=== PATIENT | female | born 1945 | race Caucasian/White ===

== ENCOUNTER 2018-01-17 06:21 | Inpatient (IN) | payer BC, MEDICARE ==
[~2018-01-17 06:21] MED LIST: ROPIVACAINE HCL/PF 100 MG, EPINEPHrine 0.2 MG, KETOROLAC TROMETHAMINE 30 MG in NORMAL S... IJ PRN; TRANEXAMIC ACID 1,000 MG in NORMAL SALINE 100 ML IV PRN; ceFAZolin SODIUM 1 GM VIAL IV PRN
[2018-01-17] MEDS: RINGER'S SOLUTION,LACTATED 1,000 ML IV PRN ×2 (07:10→09:15)
--- NOTE | 2018-01-17 07:22 | ANES ---
Anesthesia Pre Procedure Eval Vitals/Labs: Last Vital Signs Temp 36.9 C 01/17/18 06:38 Pulse 62 01/17/18 06:38 Resp 17 01/17/18 06:38 BP 162/92 H 01/17/18 06:38 Pulse Ox 95 01/17/18 06:38 HOME MEDICATIONS Sotalol HCl [Sotalol] 80 mg PO BID 11/14/13 [Last Taken 01/17/18] Nitroglycerin 0.4 mg SL Q5M 07/23/15 [Last Taken Unknown] Spironolactone [Aldactone] 12.5 mg PO DAILY 06/19/16 [Last Taken 01/16/18] cholecalciferol (vitamin D3) 2,000 unit capsule 2,000 unit PO DAILY 12/25/17 [ Last Taken 01/17/18] isosorbide mononitrate ER 60 mg tablet,extended release 24 hr 60 mg PO QAM 12/25 [Last Taken 01/17/18] lisinopril 30 mg tablet 30 mg PO BID tab 12/25/17 [Last Taken 01/17/18] metoprolol tartrate 25 mg tablet 25 mg PO BID tab 12/25/17 [Last Taken 01/17/18 ] vitamins A,C,S-zgim-auadxr 7,160 unit-113 mg-100 unit tablet 1 tab PO ONCE tab 12/25/17 [Last Taken 01/17/18] warfarin 3 mg tablet 3 mg PO DAILY tab 12/25/17 [Last Taken 01/12/18] pravastatin 40 mg tablet 40 mg PO DAILY #90 tab 12/26/17 [Last Taken 01/17/18] Furosemide [Lasix] 20 mg PO BID 01/17/18 [Last Taken 01/16/18] Allergies/Adverse Reactions: Allergies Allergy/AdvReac Type Severity Reaction Status Date / Time tramadol Allergy Mild Nausea Verified 01/17/18 06:52 morphine AdvReac Intermediate "MADE ME Verified 01/17/18 06:52 DEATHLY SICK" oxycodone HCl [From Percocet] AdvReac Mild NAUSEA, Verified 12/28/17 14:53 UPSET STOMACH - Planned Procedure Planned Procedure: Left Total Knee Arthroplasty Medication List Reviewed:: Yes Allergies Verified: Yes Medical History (Last Updated 01/17/18 @ 06:55 by Jessi Zimmerman RN) No history of alcohol use Non-tobacco user Wears dentures Wears glasses Atrial fibrillation Onset Date: 2009 DJD (degenerative joint disease) Onset Date: 2012 Hyperlipidemia Onset Date: 2009 Hypertension Onset Date: 2007 Impaired fasting blood sugar Onset Date: 2014 Macular degeneration Onset Date: Unknown Obesity Onset Date: Unknown Surgical History (Last Updated 01/17/18 @ 06:55 by Jessi Zimmerman RN) History of adenoidectomy H/O cardiac catheterization Onset Date: 11/03/09 History of appendectomy Onset Date: 1985 History of cardioversion Onset Date: 2009 History of cholecystectomy Onset Date: 1985 History of colonoscopy Onset Date: 10/04/11 History of tonsillectomy Onset Date: 1957 History of total knee arthroplasty Onset Date: 10/02/12 History of total vaginal hysterectomy (TVH) Onset Date: 1987 Family History (Last Updated 01/17/18 @ 06:56 by Jessi Zimmerman RN) Mother Heart disease Father Myocardial infarction Brother Cancer, Onset Age: 71 Hypertension Son Diabetes Cancer Son Hypertension - Family Anesthesia History Family History:: no untoward family reactions to anesthesia, no familial bleeding tendencies, no family history of clotting disorders, no family history of premature - Airway/Neck/Teeth Within Normal Limits:: Yes Denture Type: Full- Upper Mallampatti Score: 2 Thyromental (T-M) distance: > 6 cm Mandibulo Hyoid distance: > 3 cm - Respiratory Respiratory: lungs clear Smoking Status: Never smoker Discussed smoking cessation including day of surgery: No Sleep Apnea currently treated: No Sleep Apnea by current assessment: No Discussed Risks/Treatment of LA NENA: No - Cardiovascular Tolerates Activity: Fair Heart Sounds: S1 & S2, Regular - Anesthesia Assessment and Plan ASA Class: PS, III Anesthesia Type Plan: Block - Left ultrasound guided adductor canal nerve block for postop analgesia, Spinal
[2018-01-17 07:59] LABS: Prothrombin Time (Patient) 10.9 Seconds (9.0-11.0)
[2018-01-17 08:00] LABS: INR 1.09 INR (0.90-1.10)
[2018-01-17] MEDS ORDERED: HYDROmorphone HCL 1 MG/ML DISP.SYRIN IV PRN (10:10)
[2018-01-17] MEDS ORDERED: MAGNESIUM HYDROXIDE 30 ML UDC PO PRN (10:10)
[2018-01-17] MEDS ORDERED: ACETAMINOPHEN 500 MG TABLET PO PRN (10:10)
[2018-01-17] MEDS ORDERED: diphenhydrAMINE HCL 50 MG/ML VIAL IV PRN (10:10)
[2018-01-17] MEDS ORDERED: ZOLPIDEM TARTRATE 5 MG TABLET PO PRN (10:10)
[2018-01-17] MEDS ORDERED: ONDANSETRON HCL/PF 2 MG/ML VIAL IV PRN (10:10)
[2018-01-17] MEDS ORDERED: MAG HYDROX/ALUMINUM HYD/SIMETH 30 ML UDC PO PRN (10:10)
--- NOTE | 2018-01-17 10:10 | OR ---
Operative Report - Dictated Report Narrative: Date: 01/17/2018 Preoperative diagnosis: Left Knee degenerative joint disease. Postoperative diagnosis: Left Knee degenerative joint disease. Procedure: Left Total knee arthroplasty. Surgeon: Ham Adams M.D. Manufacturing Assembler: Luis Muller PA-C Anesthesia: Spinal with regional block and local periarticular joint injection. Complications: None Specimens: Bone for disposal. Estimated blood loss: Minimal. Tourniquet time: 90 Minutes at 350 millimeters of mercury. Retained implants: Depuy Attune size 6 narrow left lugged cemented posterior stabilized femoral component. Size 5 fixed-bearing cemented tibial platform. 6 by 8 millimeter posterior stabilized cross-linked tibial insert. 41 millimeter medialized patella button. Indications: Mrs. Orozco is a 72 year-old female who has had long-standing left knee pain and arthrosis. This patient was followed in my clinic for period of time with significant complaints of left knee pain consistent with arthritic changes. She had failed conservative measures including, but not limited to, activity modification, passage of time, medications, and other conservative measures. Patient wished to proceed with surgical treatment. The risks, benefits, and alternatives were discussed in clinic. The risks of , blood clots, bleeding, infection, nerve/tendon blood vessel/ injury, malposition of components, intraoperative fracture, postoperative limited range of motion, persistent pain, failure of components, and need for additional procedures. Patient wished to proceed consent was obtained after answering all questions. Procedure: After marking the correct extremity on the floor, the patient was taken to the operating room. A timeout was performed. IV antibiotics consisting of Ancef were administered prior to the procedure. A regional followed by spinal anesthetic was induced by anesthesia, per my request, on the operative table with all bony prominences well-padded. Pardo catheter was placed, and a bump was placed under the operative side buttock. SCDs and JACKLYN hose were utilized on the nonoperative leg. A well-padded tourniquet was applied to the operative thigh. The operative leg was then pre-scrubbed with alcohol prepped, and draped in a standard sterile fashion. After exsanguinating the extremity with an Esmarch bandage, the tourniquet was inflated. After marking out the anterior knee for standard incision centered over the patella, the skin was incised and dissected down to the joint retinaculum. The joint retinaculum was marked out as well as the horizontal axis of the patella, and a standard medial parapatellar arthrotomy was then made. The most proximal aspect of the quadriceps tendon and the patella tendon insertion were protected from release. A partial synovectomy was performed as well as a resection of the infrapatellar fat pad. The distal femoral fat pad proximal to the trochlea was also resected using cautery. The soft tissues were elevated off the medial aspect of the proximal tibia using a Duran elevator ensuring that we did not transect the medial collateral ligament. Upon initial evaluation range of motion was approximately 0 degrees to 120 degrees of flexion. There were signs of advanced arthrosis in the medial, lateral, and patellofemoral joint spaces. There were large marginal osteophytes which were removed with a rongeur. The knee was hyperflexed and the patella was tucked laterally. Protecting the surrounding soft tissues with Homans, an entry drill was placed down the femoral canal using Whitesides line for guidance into the entry point. The intramedullary femoral alignment tiffanie was utilized in order to cut the distal femur in 5 degrees of valgus resecting 10 millimeters of bone. Next the distal femur was sized to a size 6. A posterior referencing guide was utilized to place the distal femoral cutting block in 3 degrees of external rotation. This was pinned into place. The rotation was confirmed both visually and based on anatomic landmarks. The 4 in 1 cutting jig of the appropriate size was utilized in order to make all bony cuts. The angle wing was used to ensure no notching. Retractors were utilized in order to protect surrounding soft tissues. This cut did not result in any excessive notching. We then cut the box centered over the distal femur. This allowed for resection of the anterior and posterior cruciate ligaments. I then turned my attention to the preparation of the tibia. Using an extra medullary tibial alignment tiffanie, 4 millimeters of bone was resected off the medial articular surface. This was made perpendicular to the mechanical axis of the joint with the alignment tiffanie centered over the ankle mortise. The alignment tiffanie was checked and was noted to be parallel to the mechanical axis, centered over the medial one third of the tibial tubercle, paralleling the anterior surface of the tibia. We then turned our attention to the remaining meniscus and soft tissues. These were removed while protecting the surrounding ligaments and soft tissues. The marginal osteophytes off the anterior, posterior, medial, lateral aspects of the femur and tibia were removed. The tibia was sized out to a size 5. Next the tibia was drilled and punched in an externally rotated position. Next the trial femur and a series of tibial inserts were utilized in order to allow for full extension and maximal flexion. It was found that a 8 millimeter insert gave the best range of motion and stability at multiple flexion points as well as at full extension there was less than 2 mm of gapping both medially and laterally. There is minimal anterior translation with the knee at 90 degrees of flexion and no signs of being able to dislocate the knee. The patella was then prepared. The initial thickness was 23 millimeters. This was reamed down to 13 millimeters parallel to the anterior surface of the patella. It was sized out to a size 41 medialized patella button. This was then drilled and trialed. Without any medial restraint the patella tracked appropriately and did not sublux or dislocate. At this point, it was felt these were the appropriate sized implants, and all trials were removed. The standard periarticular joint injection consisting of ropivacaine, Toradol, and epinephrine were injected into the periarticular joint tissues. The bony surfaces were thoroughly irrigated with a pulsatile- suction saline irrigation device. A bone plug from the prior resected anterior chamfer cut was placed into the drill hole at the distal femur. The bony surfaces were then dried in preparation for placement of the implants. The cement was vacuum mixed per the laborer cement gun placing's instructions. The cement was placed on the dry bony surfaces and posterior aspect of the implants. The implants were impacted into place, removing all extruded cement. At this point anesthesia administered tranexamic acid per protocol intravenously. The knee was placed in extension with axial loading with the trial insert while the cement cured. Once the cement cured, all remaining extruded cement was removed. The knee was placed through a range of motion with the trial insert to ensure appropriate range of motion and stability. Final range of motion was approximately 0 to 120 degrees. The knee was again thoroughly irrigated with pulsatile saline lavage. The final polyethylene insert was then impacted into place ensuring no retained soft tissues. The remaining periarticular joint injection was injected. A medium Hemovac drain was placed exiting superior laterally. The knee was then placed over a triangle and the arthrotomy was closed with interrupted #1 Vicryl after thoroughly irrigating the joint. The deep and subcutaneous tissues were closed with interrupted 0 and 3-0 Vicryl respectively. Skin was closed with a running subcutaneous 3-0 Monocryl and Prineo Dermabond dressing. 4 x 4's, Sof-Rol, and a full leg Jude wrap were applied. All sponge, needle, blade, and instrument counts were correct prior to closing the wounds. Postoperative condition: The patient was awoken and transferred to the postanesthesia care unit in stable condition. Plan is to be admitted to the inpatient medical/surgical floor postoperatively for 24 hours of IV antibiotics , physical therapy, occupational therapy, and medical comanagement. Patient will be weightbearing as tolerated with range of motion as tolerated. DVT prophylaxis will be with SCDs, JACKLYN hose, and pharmacological anticoagulation. Anticipated hospital stay is approximately 1-3 days.
--- NOTE | 2018-01-17 10:27 | ANES ---
Post Anesthesia Discharge - Transfer of Care Transfer of Care handoff given to nurse: Yes - Discharge from PACU Discharge from PACU when meets criteria: Yes - Discharge to ASU Discharge to ASU-no complications/pt stable: Yes
--- NOTE | 2018-01-17 10:29 | ANES ---
Anesthesia Procedure Note Procedure Note: ANESTHESIA PROCEDURE NOTE Date of Procedure: 01/17/2018. Time of procedure: 804. Performed by: Tim Ibarra CRNA Staff Counsel: None. Preprocedure diagnosis: Left knee degenerative joint disease. Post procedure diagnosis: Same. Procedure: Left ultrasound guided adductor canal block for postoperative analgesia. Indications: The patient is a 72 -year-old female, requesting left ultrasound- guided abductor canal block for postoperative analgesia related to left total knee arthroplasty. Findings: See below. Details of the procedure: The tissue over the intended target site was cleansed with ChloraPrepand draped in a sterile fashion. 2 ml Lidocaine 1 % was infiltrated to the skin and subcutaneous tissue at the intended target site. Under sterile technique and ultrasound guidance a 18-gauge Tuohy needle was inserted through the left sartorius muscle to the saphenous nerve just anterior and medial to the superficial femoral artery and vein. 15 mL's of 0.5% bupivacaine was injected after negative aspiration for blood. Needle tip and spread of local anesthetic surrounding the saphenous nerve was observed throughout the injection with real time ultrasound visualization. The Tuohy needle was then removed intact. No complications were noted. The images were retained in the hospital medical database . EBL: Minimal. Fluids: N/A. Specimen: N/A. Post procedure condition: The patient tolerated the procedure well. No complications were noted. Thank you for this consultation. Tim Ibarra CRNA
[2018-01-17] MEDS: DEXTROSE 5%-LACTATED RINGERS 1,000 ML IV PRN ×2 (11:01→20:29)
[2018-01-17] MEDS: KETOROLAC TROMETHAMINE 15 MG/ML VIAL IV SCH ×3 (11:01→22:17)
[2018-01-17] MEDS: NITROGLYCERIN 0.4 MG/TAB BTL SL SCH ×5 (11:15→11:30)
[2018-01-17] MEDS: ceFAZolin SODIUM 1 GM in DEXTROSE 5 % IN WATER 100 ML IV SCH ×6 (11:15→23:43)
[2018-01-17] MEDS ORDERED: NITROGLYCERIN 0.4 MG/TAB BTL SL PRN (11:24)
--- NOTE | 2018-01-17 13:26 | ANES ---
Post Anesthesia Assessment - Vital Signs Vitals: Last Vital Signs Temp 35.6 C L 01/17/18 10:58 Pulse 59 L 01/17/18 10:58 Resp 12 01/17/18 10:58 BP 150/86 H 01/17/18 10:58 Pulse Ox 100 01/17/18 10:58 Airway Patency: Normal - Mental Status Level Of Consciousness: Awake - Pain Level Pain Score: 0 - N/V Assessment Nausea/Vomiting Presence: None Dehydration:: No
[2018-01-17] MEDS: HYDROmorphone HCL 2 MG TABLET PO PRN ×2 (14:27→21:40)
[2018-01-17] MEDS ORDERED: WARFARIN SODIUM 5 MG TABLET PO ONE (17:00)
[2018-01-17] MEDS: LISINOPRIL 10 MG TABLET PO SCH ×2 (17:46→20:18)
[2018-01-17] MEDS: METOPROLOL TARTRATE 25 MG TABLET PO SCH ×2 (17:47→20:18)
[2018-01-17] MEDS: FUROSEMIDE 20 MG TABLET PO SCH (20:21)
[2018-01-17] MEDS: SOTALOL HCL 80 MG TABLET PO SCH (20:21)
[2018-01-17] MEDS ORDERED: SENNOSIDES/DOCUSATE SODIUM 1 TAB TABLET PO SCH (21:00)
[2018-01-17] MEDS ORDERED: SIMVASTATIN 20 MG TABLET PO SCH (21:00)
[2018-01-18] MEDS: KETOROLAC TROMETHAMINE 15 MG/ML VIAL IV SCH ×3 (04:15→16:23)
[2018-01-18] MEDS: DEXTROSE 5%-LACTATED RINGERS 1,000 ML IV PRN (04:29)
[2018-01-18 05:30] LABS: Hematocrit 28.3 % (37.0-47.0); Hemoglobin 9.8 gm/dL (12.5-16.0); Mean Cell Volume 95.6 fl (78-100); Mean Corpuscular Hemoglobin 33.1 pg (27-31); Mean Corpuscular Hgb Conc 34.6 g/dl (32-36); Mean Platelet Volume 9.7 fl (8-12.5); Platelet Count 180 K/mm3 (150-450); Red Blood Count 2.96 M/mm3 (4.2-5.4); Red Cell Distribution Width 12.4 % (11.5-14.0); White Blood Count 7.9 K/mm3 (4.0-10.5)
[2018-01-18 05:34] LABS: Anion Gap 8.6 mmol/L (6.8-13.8); BUN/Creatinine Ratio 10.2 (9.0-21.6); Calcium * 8.2 mg/dL (7.9-10.9); Carbon Dioxide 25.3 mmol/L (24-32.6); Estimated Creat Clear 47.5; Potassium 3.9 mmol/L (3.4-4.6)
[2018-01-18 05:35] LABS: Prothrombin Time (Patient) 10.9 Seconds (9.0-11.0)
[2018-01-18 05:39] LABS: INR 1.09 INR (0.90-1.10)
[2018-01-18] MEDS: HYDROmorphone HCL 2 MG TABLET PO PRN ×2 (06:39→11:46)
--- NOTE | 2018-01-18 08:21 | PN ---
Subjective - Date and Time Seen Date: 01/18/18 Time: 08:19 Subjective Narrative: Subjective: Reports minimal pain. Was able to walk in the [place] with therapy. Pain is well-controlled. Voiding without any complications. Tolerating by mouth intake. Denies any nausea or vomiting. Denies calf pain. Slept well. Physical exam: Alert and oriented to person, place and time Left lower Extremity: Palpable dorsalis pedis pulse. Sensation grossly intact to light touch. Dressings clean and dry. Able to flex and extend ankle and toes. No excessive drainage. Calf and thigh are soft and nontender. Assessment: Postop day 1 status post left total knee arthroplasty. Plan: Due to the need for pain control, post-operative limited mobility, protection of the surgical site and joint, monitoring of the wound, and the management of chronic medical conditions, she requires continued inpatient care. Continue with physical and occupational therapy weightbearing as tolerated. Continue with anticoagulation - Coumadin and Lovenox until therapeutic. 24 hours postoperative prophylactic antibiotics. Pain control with goal to rely on oral medications. Continue bowel regimen. Will need 6 weeks with walker or assitive device to protect joint while ambulating during the recovery process. Discharge planning. Discontinue drain and Pardo catheter. Objective - Vitals Vitals: Last Vital Signs Temp 37.0 C 01/18/18 07:12 Pulse 71 01/18/18 07:12 Resp 18 01/18/18 07:12 BP 129/69 01/18/18 07:12 Pulse Ox 98 01/18/18 07:12 - Abnormal Lab Findings Abnormal Lab Findings: Abnormal Lab Results 01/18/18 01/18/18 Range/Units 05:22 05:22 RBC 2.96 L (4.2-5.4) M/mm3 Hgb 9.8 L (12.5-16.0) gm/dL Hct 28.3 L (37.0-47.0) % MCH 33.1 H (27-31) pg Sodium 129 L (132-142) mmol/L Plasma Sodium 129 L (130-142) mmol/L Random Glucose 124 H (70-110) mg/dL Cauti Physician Documentation - Urinary Catheter Management Urethral (Pardo) Date of Insertion: 01/17/18 Time of Insertion: 08:35 Date of Removal: 01/18/18 Time of Removal: 07:05 Assessment/Plan - Problems/Diagnosis (1) Acute blood loss anemia Problem: Acute (2) Status post total left knee replacement Problem: Acute (3) Hypertension Problem: Chronic (4) Afib Problem: Chronic (5) Hyperlipemia Problem: Chronic
[2018-01-18] MEDS: LISINOPRIL 10 MG TABLET PO SCH (08:53)
[2018-01-18] MEDS: METOPROLOL TARTRATE 25 MG TABLET PO SCH (08:54)
[2018-01-18] MEDS: SOTALOL HCL 80 MG TABLET PO SCH (08:54)
[2018-01-18] MEDS: FUROSEMIDE 20 MG TABLET PO SCH (08:54)
[2018-01-18] MEDS ORDERED: CHOLECALCIFEROL 1,000 UNIT CAPSULE PO SCH (09:00)
[2018-01-18] MEDS ORDERED: ISOSORBIDE MONONITRATE 60 MG TAB.SR.24H PO SCH (09:00)
[2018-01-18] MEDS ORDERED: SPIRONOLACTONE 25 MG TABLET PO SCH (09:00)
[2018-01-18] MEDS ORDERED: BETA-CAROTENE(A) W-C , E/MIN 1 TAB TABLET PO SCH (09:00)
[2018-01-18] MEDS ORDERED: ENOXAPARIN SODIUM 40 MG/0.4 ML SYRG SC SCH (09:11)
--- NOTE | 2018-01-18 15:45 | DS ---
(1) Afib Problem: Chronic (2) Hyperlipemia Problem: Chronic (3) Hypertension Problem: Chronic Qualifiers: Hypertension type: essential hypertension Qualified Code(s): I10 - Essential (primary) hypertension (4) Osteoarthritis of knee Problem: Chronic Qualifiers: Osteoarthritis type: primary Laterality: left Qualified Code(s): M17.12 - Unilateral primary osteoarthritis, left knee (5) Acute blood loss anemia Problem: Acute (6) Status post total left knee replacement Problem: Acute Description of Stay: Mrs. Orozco was admitted to the floor after undergoing left total knee arthroplasty. Tolerated this well. Was admitted to the floor postoperatively for 24 hours of IV antibiotics, pain control, medical comanagement, and occupational and physical therapy. OT and PT were consulted to assist with activities of daily living and ambulation. Was made weightbearing as tolerated with range of motion as tolerated. Pain was initially controlled with IV regimen. This was transitioned to oral once tolerating a by mouth intake. Was resumed on home diet and medications. Had a Pardo catheter inserted and the operating room which was discontinued on postoperative day 1. A drain was placed intraoperatively into the knee which was discontinued on postoperative day 1. Lovenox SCD and JACKLYN hose were utilized for DVT prophylaxis as well as restarted on her Coumadin. Vital signs remained stable to the hospital course. Serial labs were obtained which showed a final hemoglobin of 9.8 grams. INR on postoperative day was 1.09 BMP was reviewed and was stable. Physical examination throughout the hospital course showed an extremity that had sensation that was intact to light touch, palpable pulses, a benign wound, motor intact to the toes, ankle, and knee. Knee range of motion was approximately 5 degrees to 75 degrees. Once an oral pain regimen was tolerated and physical therapy goals were met, it was felt that they were stable for discharge to home. Instructions: Continue with weightbearing as tolerated and range of motion as tolerated. It is OK to shower on the wound if it is not draining. If you note any drainage or for comfort you can cover with dry gauze and tape. Change every 2-3 days as needed. Continue with physical therapy. Resume home diet. Report any fever over 101.5 Fahrenheit, uncontrolled pain, increased drainage, foul odor of drainage, new or increased calf pain or shortness of breath, or any other significant complaints. She was discharged with Lovenox injections 40 mg once daily #5 given. She will have an INR checked on January 22. If her INRs therapeutic at that point time she'll be off Lovenox. Continue with JACKLYN hose on the operative extremity until instructed otherwise. No driving until instructed otherwise. She is set up for outpatient physical therapy and will start this January 22. Follow up in approximately 10-14 days. Procedures Performed: see notes below List Procedures: Left total knee arthroplasty Results and Findings: Lab Pending Results 01/17/18 07:40: PT 10.9, INR (Anticoag Therapy) 1.01/18/18 05:22: WBC 7.9, RBC 2.96 L, Hgb 9.8 L, Hct 28.3 L, MCV 95.6, MCH 33.1 H , MCHC 34.6, RDW 12.4, Plt Count 180, MPV 9.7 01/18/18 05:22: PT 10.9, INR (Anticoag Therapy) 1.01/18/18 05:22: Sodium 129 L, Plasma Sodium 129 L, Potassium 3.9, Chloride 99, Carbon Dioxide 25.3, Anion Gap 8.6, BUN 9, Creatinine 0.88, Est GFR (Non-Af Amer ) 68, BUN/Creatinine Ratio 10.2, Random Glucose 124 H, Calcium 8.2 Discharge Location: Home Disposition: Home self-care Condition: Good Discharge Activity: Activity as tolerated, Other - with walker Referrals: Natasha Mcgregor DO [Primary Care Provider] - Additional Patient Instructions (free text): Follow up outpatient therapy at [facility] rehab, someone will call you with appt. time. Dr Adams's Orthopedic follow up appt. on Monday02/06/18 at 9:45 am. Prescriptions (Any new or edited meds): Enoxaparin Sodium [Lovenox] 40 mg SC Q24H #5 disp.syrin HYDROmorphone HCL [Dilaudid] 2 mg PO Q4H PRN #90 tablet PRN Reason: Severe Pain (Pain Scale 7-10) Sennosides/Docusate Sodium [Senokot-S] 2 tab PO HS #30 tab Complete Home Medications List: Complete Home Medication List: Sotalol HCl [Sotalol] 80 mg PO BID 11/14/13 Nitroglycerin 0.4 mg SL Q5M PRN 07/23/15 Spironolactone [Aldactone] 12.5 mg PO DAILY 06/19/16 cholecalciferol (vitamin D3) 2,000 unit capsule 2,000 unit PO DAILY 12/25/17 isosorbide mononitrate ER 60 mg tablet,extended release 24 hr 60 mg PO QAM 12/25 lisinopril 30 mg tablet 30 mg PO BID tab 12/25/17 metoprolol tartrate 25 mg tablet 25 mg PO BID tab 12/25/17 vitamins A,C,G-zqjz-jcmkva 7,160 unit-113 mg-100 unit tablet 1 tab PO ONCE tab 12/25/17 warfarin 3 mg tablet 3 mg PO DAILY tab 12/25/17 pravastatin 40 mg tablet 40 mg PO DAILY #90 tab 12/26/17 Furosemide [Lasix] 20 mg PO BID 01/17/18 Acetaminophen [Tylenol] 1,000 mg PO Q6H PRN tablet 01/18/18 Enoxaparin Sodium [Lovenox] 40 mg SC Q24H #5 disp.syrin 01/18/18 HYDROmorphone HCL [Dilaudid] 2 mg PO Q4H PRN #90 tablet 01/18/18 Sennosides/Docusate Sodium [Senokot-S] 2 tab PO HS #30 tab 01/18/18 Amb Orders for Discharge: Prothrombin Time Time Frame: 01/22/18, Location: Laboratory
[2018-01-18 16:56] VITALS: BP 146/72
[2018-01-18] MEDS ORDERED: WARFARIN SODIUM 3 MG TABLET PO SCH (17:00)
--- NOTE | 2018-01-31 22:16 | PN ---
Subjective - Date and Time Seen Date: 01/18/18 Time: 09:05 Subjective Narrative: Patient seen and examined at bedside. No acute issues overnight. Patient doing well post-operatively and her pain is currently adequately controlled. She will be working with PT later this morning. The patient states that she was told by ortho that she may be able to go home later today if she continues to do well. Objective - Review of Systems Generalized/Overall Review: Reports: No Symptoms Reported EENTM: Reports: No Symptoms Reported Respiratory: Reports: No Symptoms Reported Cardiac: Reports: No Symptoms Reported Abdominal: Reports: No Symptoms Reported Genitourinary Symptoms: Reports: No Symptoms Reported Musculoskeletal Complaints: Reports: Joint Pain Neurological: Reports: No Symptoms Reported Skin: Reports: No Symptoms Reported Misc: All systems neg except as marked - Vitals Vitals: Last Vital Signs Temp 37.0 C 01/18/18 16:55 Pulse 71 01/18/18 16:55 Resp 18 01/18/18 16:55 BP 146/72 01/18/18 16:55 Pulse Ox 98 01/18/18 16:55 - Exam Constitutional: Present: Alert, Oriented x3, Cooperative, Well developed, No distress, Obese ENT Exam: Present: hearing grossly normal, moist mucous membranes Respiratory: Present: lungs clear, normal breath sounds, no respiratory distress , no accessory muscle use Cardiovascular/Chest: Present: irregularly irregular Abdomen: Present: soft, nontender, hypoactive Extremity: Present: other - s/p left TKA with post-op dressing in place Skin Exam: Present: warm/dry Neurologic: Present: no motor/sensory deficits, alert, normal mood/affect, oriented x 3 Appearance: Present: appropriate appearance, appropriate insight, neat, no memory impairment Eye contact: Present: cooperative, good eye contact, normal speech Thoughts: Present: normal thought pattern, no apparent hallucination Cauti Physician Documentation - Urinary Catheter Management Urethral (Pardo) Date of Insertion: 01/17/18 Time of Insertion: 08:35 Date of Removal: 01/18/18 Time of Removal: 07:05 Assessment/Plan Plan Narrative: Patient is s/p left total knee arthroplasty on 01/17/2018. The patient is doing remarkably well postoperatively. Patient restarted on coumadin yesterday evening and she will continue to follow with the coumadin clinic after discharge for ongoing management. Continue all other home medications and continue post-op cares and post-op pain control per ortho. I am okay with discharge home later today from my standpoint if ortho feels the patient is ready for discharge. - Problems/Diagnosis (1) Status post total left knee replacement Problem: Acute (2) Acute blood loss anemia Problem: Acute (3) Afib Problem: Chronic Qualifiers: Atrial fibrillation type: permanent Qualified Code(s): I48.2 - Chronic atrial fibrillation
== END 2018-01-18 17:00 | disposition home or self-care (01) | DRG 470 ==
LOC: MS 06:21 → EDSTATUS 08:00
PROVIDERS: ADMIT Orthopaedic Surgery; ATTEND Orthopaedic Surgery
CPT/HCPCS: 36415; 73560; 80048; 85027; 85610; 97110; 97116; 97161; 97165